=== PATIENT | male | born 1990 | race American Indian/Alaskan Native ===

== ENCOUNTER 2017-03-16 19:40 | Emergency (ER) | payer OTHER ==
[2017-03-16 19:42] VITALS: BP 132/86; PULSE 58; RESP 18; TEMP 98.2; O2SAT 99
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
== END 2017-03-16 21:40 | disposition home or self-care (01) ==
LOC: H.ER 19:40
DX: S09.90XA Unspecified injury of head, initial encounter (principal); V49.69XA Unspecified car occupant injured in collision with other motor vehicles in traffic accident, initial encounter; Y92.410 Unspecified street and highway as the place of occurrence of the external cause